=== PATIENT | female | born 1990 ===

== ENCOUNTER 2016-03-11 01:41 | Emergency (ER) | payer MEDICAID, OTHER | END 2016-03-11 03:39 | disposition home or self-care (01) | LOC: ED 01:41 | DX: G89.29 Other chronic pain (principal); R07.81 Pleurodynia ==

== ENCOUNTER 2016-06-30 16:51 | Emergency (ER) | payer MEDICAID, OTHER | END 2016-06-30 18:11 | disposition left against medical advice (07) | LOC: ED 16:51 | DX: R07.81 Pleurodynia (principal); R56.9 Unspecified convulsions; Z79.899 Other long term (current) drug therapy; Z88.5 Allergy status to narcotic agent; Z88.2 Allergy status to sulfonamides ==